=== PATIENT | female | born 2000 | race Caucasian/White ===

== ENCOUNTER → 2022-05-20 09:17 | Outpatient (BNVA) | payer SELFPAY | PROVIDERS: Family Provider Family Medicine; Visit Provider Nurse Practitioner Women's Health | DX: Z34.90 Encounter for supervision of normal pregnancy, unspecified, unspecified trimester (principal) | CPT/HCPCS: 80307; 81000; 81025; 84443; 85027; 86592; 86762; 86803; 86850; 86870; 86900; 87086; 87340; 87491; 87591; 87661; 87806 ==

== ENCOUNTER → 2022-06-27 14:30 | Outpatient (BNVA) | payer OTHER, MEDICAID, SELFPAY | PROVIDERS: Family Provider Family Medicine; Visit Provider Obstetrics & Gynecology | DX: Z36.89 Encounter for other specified antenatal screening (principal) | CPT/HCPCS: 76805 ==

== ENCOUNTER → 2022-07-02 15:20 | Outpatient (BNVA) | payer OTHER, SELFPAY | PROVIDERS: Family Provider Family Medicine; Visit Provider Obstetrics & Gynecology | DX: Z34.00 Encounter for supervision of normal first pregnancy, unspecified trimester (principal) | CPT/HCPCS: 81000 ==

== ENCOUNTER → 2022-07-25 13:17 | Outpatient (BNVA) | payer OTHER, SELFPAY | PROVIDERS: Family Provider Family Medicine; Visit Provider Nurse Practitioner Women's Health | DX: Z34.00 Encounter for supervision of normal first pregnancy, unspecified trimester (principal) | CPT/HCPCS: 81000; 82950; 86870; 86886; 86905 ==

== ENCOUNTER → 2022-09-06 07:48 | Outpatient (BNVA) | payer OTHER, SELFPAY | PROVIDERS: Family Provider Family Medicine; Visit Provider Obstetrics & Gynecology | DX: Z34.00 Encounter for supervision of normal first pregnancy, unspecified trimester (principal) | CPT/HCPCS: 81000 ==

== ENCOUNTER → 2022-09-20 15:58 | Outpatient (BNVA) | payer OTHER, SELFPAY | PROVIDERS: Family Provider Family Medicine; Visit Provider Obstetrics & Gynecology | DX: Z34.00 Encounter for supervision of normal first pregnancy, unspecified trimester (principal) | CPT/HCPCS: 81000 ==

== ENCOUNTER → 2022-10-03 13:42 | Outpatient (BNVA) | payer OTHER, SELFPAY | PROVIDERS: Family Provider Family Medicine; Visit Provider Nurse Practitioner Women's Health | DX: Z34.00 Encounter for supervision of normal first pregnancy, unspecified trimester (principal); O99.019 Anemia complicating pregnancy, unspecified trimester | CPT/HCPCS: 81000; 82728; 82746; 83550; 85025; 86850; 86900 ==

== ENCOUNTER → 2022-10-17 11:20 | Outpatient (BNVA) | payer OTHER, SELFPAY | PROVIDERS: Family Provider Family Medicine; Visit Provider Obstetrics & Gynecology | DX: Z34.00 Encounter for supervision of normal first pregnancy, unspecified trimester (principal) | CPT/HCPCS: 87081 ==

== ENCOUNTER → 2022-10-25 15:13 | Outpatient (BNVA) | payer OTHER, SELFPAY | PROVIDERS: Family Provider Family Medicine; Visit Provider Obstetrics & Gynecology | DX: Z34.00 Encounter for supervision of normal first pregnancy, unspecified trimester (principal) | CPT/HCPCS: 81000 ==

== ENCOUNTER 2022-10-30 16:48 | Inpatient (IN) | payer OTHER, BC, SELFPAY ==
[2022-10-30] VITALS (103 sets, daily range): BP systolic 114–145; BP diastolic 57–92; PULSE 57–91; RESP 15–17; TEMP 36.2–36.6; O2SAT 98–99; BMI 28.6
[2022-10-30 11:05] LABS: Actim Prom Positive
[2022-10-30 12:58] LABS: Basophils % 0.2 %; Eosinophils # 0.1 10^3/uL (0.0-0.8); Eosinophils % 0.4 %; Hematocrit 36.7 % (37.0-47.0); Hemoglobin 12.8 g/dL (11.5-15.3); Lymphocytes % 21.3 %; Mean Corpuscular HGB Conc 34.9 g/dL (30.0-36.0); Mean Corpuscular Hemoglobin 30.5 pg (28.0-34.0); Mean Corpuscular Volume 87.4 fl (81-99); Mean Platelet Volume 12.1 fL (7.4-10.4); Monocytes # 0.9 10^3/uL (0.2-0.9); Monocytes % 6.8 %; Neutrophils # 9.75 10^3/uL (1.8-8.0); Neutrophils % 70.5 %; Nucleated Red Blood Cells % 0 %; Platelet Count 216 10^3/cmm (130-400); Red Cell Distribution Width 12.9 % (12.1-15.1); White Blood Count 13.8 10^3/uL (4.5-13.0)
--- NOTE | 2022-10-30 14:06 | PM.OPHPUD ---
Labor & Delivery H&P Update Date of Procedure: October 30, 2022 Date H&P Performed: 10/25/22 H&P update information: I have reviewed H&P completed within last 30 days, I have examined patient prior to procedure and No changes to prior documentation Admission Diagnosis:
[2022-10-30] MEDS: oxytocin 30 UNIT/500 ML BAG IV (15:09)
[2022-10-30] MEDS: dextrose 5%-lactated ringers 1,000 ML 125 ML IV ×2 (15:10→19:13)
[2022-10-30] MEDS: sodium chloride 0.9% 1,000 ML 999 ML IV ×2 (16:59→17:56)
[2022-10-30] MEDS: ROPivacaine syringe 100 MG/50 ML SYRINGE 10 MG EPIDURAL ×2 (17:55→20:11)
--- NOTE | 2022-10-30 18:08 | ANES.PREANE2 ---
Pre-Anesthetic Assessment Height/Weight: Height 1.7 m Weight 83.007 kg Temp Pulse Resp BP Pulse Ox O2 Del Method 97.9 F 68 15 117/74 98 Room Air 10/30/22 15:07 10/30/22 18:03 10/30/22 15:07 10/30/22 18:03 10/30/22 17:56 10/30/22 14:05 Familial anesthetic complications: Epidural Social No alcohol and No tobacco Exam alert, oriented x 3, clear to auscultation bilaterally and regular rate & rhythm Airway Mallampati: Class II Dentition: full CV/HEM Anemia Anesthetic Plan ASA status: 2 Anesthesia: Regional (specify below) (epidural) Risk of > 500 ml blood loss (7ml/kg in children): Yes, adequate IV access and fluids planned Medications/Allergies Home Medications Medication Instructions Recorded Confirmed Last Taken Type PNV 153-FA 400 mcg-om3 35 mg-dha 1 tab PO DAILY 06/05/22 10/30/22 Unknown History 25 mg-epa 5 mg-fish oil chew tablet ( Gummies) citalopram 10 mg tablet (Celexa) 10 mg PO DAILY #30 tabs 10/03/22 10/30/22 Unknown Rx Allergies Allergy/AdvReac Type Severity Reaction Status Date / Time No Known Allergies Allergy Verified 10/17/22 10:20 Current Medications Generic Name Dose Route Start Last Admin Trade Name Rip PRN Reason Stop Dose Admin Dextrose/Lactated Ringer's 1,000 mls @ 125 mls/hr 10/30/22 12:15 10/30/22 16:59 Dextrose 5%-Lactated Ringers IV 0 mls/hr .Q8H DENISA Infusion Oxytocin 30 unit in 500 mls @ 1 mls/hr 10/30/22 12:30 10/30/22 15:09 Pitocin IV 1 milliunit/min .Q24H DENISA 1 mls/hr Administration Protocol 1 MILLIUNIT/MIN Ropivacaine 100 mg in 50 mls @ 10 mls/hr 10/30/22 16:45 10/30/22 17:55 Naropin Syringe EPIDURAL 10 mls/hr .Q5H DENISA Administration Sodium Chloride 1,000 mls @ 999 mls/hr 10/30/22 17:00 10/30/22 17:56 Sodium Chloride 0.9% IV 10/30/22 19:00 999 mls/hr .Q1H1M DENISA Administration PFSH Anesthesia Medical History Anxiety and depression No pertinent past medical history neghx: htn,dm,thyroid,dvt/pe PCP: none Surgical History No pertinent past surgical history Family History Unknown Cancer She denies a family hx of breast, ovarian, uterine, colon, thyroid, pancreatic cancers. She denies a fam hx of HTN, DM, Strokes, Thyroid disease Mother Clotting disorder Factor V Leiden Mutation Female Reproductive History : 1 Data Anesthesia 10/30/22 12:40 Short CBC 10/30/22 Range/Units 12:40 WBC 13.8 H (4.5-13.0) 10^3/uL Hgb 12.8 (11.5-15.3) g/dL Hct 36.7 L (37.0-47.0) % MCV 87.4 (81-99) fl Plt Count 216 (130-400) 10^3/cmm Neut % (Auto) 70.5 % Neut # (Auto) 9.75 H (1.8-8.0) 10^3/uL Cardiac Studies: No Data to Display
--- NOTE | 2022-10-30 18:09 | ANES.PROC ---
Anesthesia Procedures Procedure/Date: 10/30/22 Epidural: Time Out Performed: Yes Consents Signed: Procedure Consent Consent: requested by attending/covering physician, from patient, from other, risks and benefits reviewed and patient agrees to proceed Lumbar Level: L3-L4 Epidural position: sitting Epidural procedure: sterile prep of area, 1% lidocaine to numb the area, 18 g needle, negative for paresthesia passed, neg for paresthesia, test dose given, 1.5% xylocaine 1:200k epi (5 cc), 0.2% Ropivacaine bolus ml (5 ml), placed PCEA, no systemic response, sterile dressing applied, L.U.D. no apparent complications and 0.2% Ropiavacaine @ mls/hr (10) Additional Comments: TRENT at 4 cm, threaded to 10.5 cm
[2022-10-30] MEDS: oxytocin 30 UNIT/500 ML BAG 600 UNIT IV (21:32)
--- NOTE | 2022-10-30 21:43 | PM.DELIVERY ---
Delivery Note: Date of delivery: October 30, 2022 Pre-delivery diagnoses: Term Post-delivery diagnoses: Term delivered Procedure: Spontaneous vaginal delivery Delivering Physician: Paul Paul MD Estimated blood loss (mL): 300 Pre-Delivery Course: Ms. Cho is a 22 year old established patient with LMP of 02/18/22, KENNY 11/13/22 based off of 15 week sonogram, placing her at 38-0/7 weeks She has been experiencing painful uterine contractions for the past 4 hours. The contractions are occurring at 4 minute intervals with approximately 30 second duration. She continues to feel movement between the contractions. She denies vaginal bleeding. Refers rupture of membranes. HPI: Received appropriate care. Daily vitamins since start of care. labs have all been normal, including negative for HIV. She was found to negative for Group B Strep from screening at 36 weeks. She has gained approximately 32.35220 lbs throughout the . She denies a history of HTN during . Glucose tolerance screening for gestational diabetes was negative. Delivery: The patient was noted to be complete and pushing, so was placed in the dorsal lithotomy position, prepped and draped in the usual sterile fashion for a vaginal delivery. Pt. Noted to have epidural anesthesia. At 2124 the patient delivered a viable term male weighing 2900 g with scores of 8 and 9 at one and five minutes, respectively. The vertex was delivered spontaneously over intact.. The patient was asked to push and the head delivered spontaneously in the AMY position, over an intact perineum. A nuchal cord was checked and 1 noted, and delivered through around head as necessary. The anterior shoulder delivered easily and the posterior shoulder followed. The remainder of the infant was easily delivered and the oropharynx and nasopharynx was bulb suctioned. The was noted to have spontaneous cry and spontaneous movement of all four extremities. The cord was clamped x 2 and cut and noted to have 2 arteries and one vein. The was passed to the other's abdomen where nursing personnel were in attendance. Cord blood and cord pH were then obtained. The placenta delivered intact spontaneous and the uterus was explored. 20 units of Pitocin was placed in the IV bag to firm the uterus. Examination of the cervix and vaginal vault did not reveal any lacerations. A vaginal pack was then placed. Examination of the perineum showed a second-degree laceration. The laceration was repaired with 3-0 Vicryl in the normal fashion in a running non locking fashion to reapproximate the laceration in layers. The vaginal pack was then removed. The patient tolerated this procedure well, and recovered in L&D with her infant in their LDR room. All sponge and needle counts were correct. Post-Delivery Status: Good and stable History History History 1 Term Miscarriages/Ectopic Living Children Coding Level of Care Code Acute Code for Chg Fwd Diagnoses
[2022-10-31] VITALS: TEMP 36.7
[2022-10-31] MEDS: HYDROcodone-acetaminophen 5-325 mg Tablet PO (00:16)
[2022-10-31 01:00] VITALS: BP 123/73; PULSE 64; RESP 18; TEMP 37.3; O2SAT 98
[2022-10-31 02:30] VITALS: BP 123/77; PULSE 65; RESP 16; TEMP 36.7; O2SAT 97
[2022-10-31 03:59] VITALS: BP 118/74; PULSE 60; RESP 16; TEMP 36.8; O2SAT 98
--- NOTE | 2022-10-31 07:35 | ANE.PACU2 ---
Inpatient post-anesthesia follow up: Airway intact: Yes Vital signs: Temperature 98.3 F Pulse Rate 60 Respiratory Rate 16 Blood Pressure 118/74 Pulse Oximetry 98 Oxygen Delivery Me thod Room Air Oxygen Flow Rate Fraction of Inspir ed Oxygen Hydration adequate: Yes Nausea and vomiting: Yes Pain level: 1 Mental status: Baseline
[2022-10-31] MEDS: prenatal vitamin Capsule 1 CAP PO (08:43)
[2022-10-31] MEDS: ibuprofen 800 mg tablet PO ×3 (08:43→20:52)
[2022-10-31] MEDS: docusate sodium 100 mg Capsule PO ×2 (08:43→20:52)
[2022-10-31 13:16] LABS: Hematocrit 33.1 % (37.0-47.0); Hemoglobin 11.2 g/dL (11.5-15.3); Mean Corpuscular HGB Conc 33.8 g/dL (30.0-36.0); Mean Corpuscular Volume 88.7 fl (81-99); Platelet Count 174 10^3/cmm (130-400); Red Blood Count 3.73 10^6/uL (4.1-5.3); Red Cell Distribution Width 13.2 % (12.1-15.1); White Blood Count 15.8 10^3/uL (4.5-13.0)
[2022-10-31 16:00] VITALS: BP 126/76; PULSE 67; RESP 16; TEMP 36.4; O2SAT 96
--- NOTE | 2022-10-31 17:07 | PM.OBGYDC ---
Discharge Providers NETWORK SECURITY ADMINISTRATOR Date of Admission: 10/30/22 16:48 Date of Discharge: 10/31/22 Attending Provider at Admission: Paul Paul MD Attending Provider at Discharge: Paul Paul MD Primary NETWORK SECURITY ADMINISTRATOR: Paul Paul MD Reason for Visit Reason for Visit: poss srom & contractions Hospital Course Hospital Course Ms. Cho is a 22 year old established patient with LMP of 02/18/22, KENNY 11/13/22 based off of 15 week sonogram, placing her at 38-0/7 weeks, Came into labor and delivery with contractions and premature rupture of membranes. She progressed to start spontaneous vaginal delivery without complication. Overnight observation was uneventful. She is afebrile hemodynamically stable day 1. Tolerating diet well. Ambulating without difficulty. Counseled regarding pelvic rest for 6 weeks (no sex, no tampons, no vaginal douches). Return to the emergency room if any fever, increased bleeding or pain. Information Peripartum Data: Delivery Method: Vaginal Physical Exam Narrative: GA; alert and oriented x 3 HEENT: normal Breasts: engorged Nipples - skin intact Lungs; clear to auscultation Heart: regular rhythm, no murmurs. Abd: Appropriately tender. BS+. Uterine fundus below umbilicus. No Fundal Tenderness. Perineum: normal lochia. Extremities: no edema, no cyanosis, no tenderness. Urinary Catheter Management: Patton Latex: Cath Placed During This Visit: yes, but has since been removed by the nurse Reason for Continuing Indwelling Catheter: Accurate Measurement of Urinary Output in Critically Ill Patients Urinary Catheter Date of Insertion: 10/30/22 Urinary Catheter Time of Insertion: 18:45 Date Urinary Catheter Removed: 10/30/22 Time Urinary Catheter Discontinued: 20:24 History History History 1 Term Miscarriages/Ectopic Living Children Discharge Data Studies Completed and Pending Laboratory Results WBC 15.8 10^3/uL (4.5-13.0) H 10/31/22 12:45 RBC 3.73 10^6/uL (4.1-5.3) L 10/31/22 12:45 Hgb 11.2 g/dL (11.5-15.3) L 10/31/22 12:45 Hct 33.1 % (37.0-47.0) L 10/31/22 12:45 MCV 88.7 fl (81-99) 10/31/22 12:45 MCH 30.0 pg (28.0-34.0) 10/31/22 12:45 MCHC 33.8 g/dL (30.0-36.0) 10/31/22 12:45 RDW 13.2 % (12.1-15.1) 10/31/22 12:45 Plt Count 174 10^3/cmm (130-400) 10/31/22 12:45 MPV 12.0 fL (7.4-10.4) H 10/31/22 12:45 Neut % (Auto) 70.5 % 10/30/22 12:40 Lymph % (Auto) 21.3 % 10/30/22 12:40 Andrews % (Auto) 6.8 % 10/30/22 12:40 Eos % (Auto) 0.4 % 10/30/22 12:40 Baso % (Auto) 0.2 % 10/30/22 12:40 Neut # (Auto) 9.75 10^3/uL (1.8-8.0) H 10/30/22 12:40 Lymph # (Auto) 3.0 10^3/uL (1.5-6.5) 10/30/22 12:40 Andrews # (Auto) 0.9 10^3/uL (0.2-0.9) 10/30/22 12:40 Eos # (Auto) 0.1 10^3/uL (0.0-0.8) 10/30/22 12:40 Baso # (Auto) 0.0 10^3/uL (0.0-0.1) 10/30/22 12:40 Nucleated RBC % (auto) 0 % 10/30/22 12:40 Nucleated RBCs # 0.0 /100WBC 10/30/22 12:40 Insulin-like GF I Positive 10/30/22 10:56 Vitals Last Vital Signs Temp 97.6 F 10/31/22 16:00 Pulse 67 10/31/22 16:00 Resp 16 10/31/22 16:00 BP 126/76 10/31/22 16:00 Pulse Ox 96 10/31/22 16:00 O2 Del Method Room Air 10/31/22 16:00 Discharge Plan Discharge Patient Disposition: Home Condition: Stable Prescriptions: New ibuprofen 800 mg tablet 800 mg PO TID PRN (Reason: pain) Qty: 60 0RF acetaminophen 325 mg capsule 325 mg PO Q4H PRN (Reason: fever or pain) Qty: 60 0RF Continued Gummies 400 mcg-35 mg- 25 mg-5 mg tablet,chewable 1 tab PO DAILY citalopram [Celexa] 10 mg tablet 10 mg PO DAILY Qty: 30 0RF Discharge Orders: Discharge Order (Routine); Ordered 10/31/22 Ordered By: Paul Paul Referrals: Paul Paul MD [Physician] - 6 Weeks Discharge Diet: Usual diet Discharge Activity: Limit activity as instructed Patient Instructions: Opioid Safety, Vaginal Delivery (GEN), Your 's Appearance (GEN), Bleeding (GEN), Caring for Your Baby (GEN) Activity Restrictions/Additional Instructions: 1. Please call [facility] on next working day to make your appointment in 6 weeks. 2. Please stay home until you come back to the clinic on first post-hospatilization check up. 3. Please follow instructions on your medications CAREFULLY. 4. If you have abdominal incision, do not cover it unless dressing is necessary because of drainage. OK to shower, but avoid bath. Leave steri-strips until they fall off. If they are still on one week after surgery, you may remove them. 5. If you had vaginal surgery or vaginal repair, Dr. Paul may instruct you to take SITZ bath. 6. Yellow, blood tinged odorous vaginal discharge is usually normal after hysterectomy or vaginal surgeries. 7. No SEXUAL INTERCOURSE, tampons, or douches until you are completely released from the post-operative care. 8. Avoid constipation by eating right and maybe using some Metamucil or Milk of Magnesia. 9. All prescription refills are given during the working hours. Please do no wait till it runs out. Call the clinic at [phone] before your medication runs out. The clinic will get in touch with your doctor to prescribe medications if necessary. 10. Please remain within 40 mile radius from our hospital because emergencies do happen now and then during the post-operative period. 11. If you have stairs at home, take one step at a time slowly and minimize the number of trips. It helps to stay in one floor for the next few days. No lifting except what you can lift by one hand until you are released from the post-operative care. 12. Driving is discouraged until you are well healed. It may be 3-4 weeks before you feel strong enough to drive. You should be able to turn and look through the rear window without pain and you should be able to push the brake pedal very hard without pain before you drive. No fast rules, but SAFETY should be your primary concern. DO NOT drive if you are on sedating medications such as narcotics. 13. Call the clinic (during working hours) to make urgent appointment or go to the Emergency room, if any of the following occurs: i. Vaginal bleeding becomes heavy, more than a period. ii. Incision becomes red and sore, or drains pus. iii. Your TEMPERATURE is over 100.4F or you have chill. iv. IV site becomes red and swollen (a little ``knot?? is usually OK) v. Persistent nausea and vomiting vi. Persistent constipation or diarrhea vii. Rash or allergic reaction to medications. Discharge Attestations NETWORK SECURITY ADMINISTRATOR Time Spent in Discharge Care*: greater than 30 min Coding Level of Care Code Acute Code for Chg Fwd Diagnoses
[2022-10-31 22:55] VITALS: BP 125/77; PULSE 67; RESP 15; TEMP 36.6; O2SAT 97
== END 2022-10-31 22:58 | disposition home or self-care (01) | DRG 807 ==
LOC: OPOB 16:48 → OBGYN 16:48
PROVIDERS: Obstetrics & Gynecology; Admitting Provider Obstetrics & Gynecology; Family Provider Family Medicine; Visit Provider Obstetrics & Gynecology
DX: O42.02 Full-term premature rupture of membranes, onset of labor within 24 hours of rupture (principal); Z37.0 Single live birth; O70.1 Second degree perineal laceration during delivery; Z3A.38 38 weeks gestation of pregnancy; O99.344 Other mental disorders complicating childbirth; F41.9 Anxiety disorder, unspecified
CPT/HCPCS: 36415; 51702; 59025; 59409; 83986; 84112; 85025; 85027; 99211; J2590; J2795; J7030; J7121

== ENCOUNTER → 2024-11-23 14:31 | Outpatient (BNVA) | payer BC, SELFPAY | PROVIDERS: Family Provider Family Medicine | DX: N39.0 Urinary tract infection, site not specified (principal); A49.9 Bacterial infection, unspecified; R30.0 Dysuria | CPT/HCPCS: 81000; 87086 ==